=== PATIENT | male | born 1970 | race African-American/Black ===

== ENCOUNTER 2022-04-26 10:47 | Emergency (ER) | payer OTHER ==
[2022-04-26 11:36] LABS: INR 1.29 (0.9-1.2); PROTHROMBIN TIME 15.7 SECONDS (11.9-13.9); PTT 27.8 SECONDS (24.9-34.6)
[2022-04-26 11:46] LABS: BASOPHIL 0.9 % (0-2); EOSINOPHIL 3.6 % (0-5); HCT 27.3 % (42.0-52.0); HGB 9.6 g/dl (13.2-18.0); LYMPHOCYTE 13.2 % (15-48); MCH 37.4 pg (25.0-31.0); MCHC 35.2 g/dL (32.0-36.0); MCV 106.2 fL (78.0-100.0); MONOCYTE 9.3 % (0-12); NEUTROPHIL 72.7 % (41-80); NRBC 0; PLT 160 K/uL (150-400); RBC 2.57 M/uL (4.70-6.00); RDW 15.6 % (11.5-14.0); WBC 8.6 K/uL (4.0-10.5)
[2022-04-26 12:29] LABS: ALBUMIN 3.3 g/dL (3.4-5.0); ALKALINE PHOSHATASE 213 U/L (46-116); ALT 27 U/L (16-63); AST 91 U/L (15-37); BILIRUBIN - TOTAL 1.7 mg/dL (0.2-1.0); BUN 11 mg/dL (7-18); BUN/CREAT RATIO (CALC) 6.1 RATIO; CHLORIDE 102 mmol/L (98-107); CO2 (BICARBONATE) 26 mmol/L (21-32); CREATININE 1.79 mg/dL (0.67-1.17); GLOBULIN (CALCULATION) 6.8 g/dL; GLUCOSE 89 mg/dL (74-106); POTASSIUM 3.5 mmol/L (3.5-5.1); TOTAL PROTEIN 10.1 g/dL (6.4-8.2)
[2022-04-26 13:31] LABS: LIPASE 256 U/L (73-393)
[2022-04-26] MEDS ORDERED: ONDANSETRON ODT4 MG PO (13:44)
[2022-04-26] MEDS ORDERED: LASIX20 MG PO (13:44)
[2022-04-27 05:10] LABS: HBSAG SCREEN Negative (Negative); HCV AB <0.1 (0.0-0.9); HEP A AB, IGM Negative (Negative); HEP B CORE AB, IGM Negative (Negative)
== END 2022-04-26 14:00 | disposition home or self-care (01) ==
LOC: FER 10:47
PROVIDERS: Internal Medicine
DX: K74.60 Unspecified cirrhosis of liver (principal); R18.8 Other ascites; D64.9 Anemia, unspecified; I12.9 Hypertensive chronic kidney disease with stage 1 through stage 4 chronic kidney disease, or unspecified chronic kidney disease; N18.30 Chronic kidney disease, stage 3 unspecified; F17.210 Nicotine dependence, cigarettes, uncomplicated; Z28.310 Unvaccinated for COVID-19
CPT/HCPCS: 36415; 80053; 80074; 83690; 85025; 85610; 85730; G0480